=== PATIENT | female | born 1980 | race Two or more races ===

== ENCOUNTER 2021-09-10 18:16 | Emergency (ER) | payer OTHER ==
--- NOTE | 2021-09-10 18:41 | NUR ---
not in lobby
--- NOTE | 2021-09-10 19:15 | NUR ---
not in lobby
[2021-09-10] MEDS ORDERED: IBUP-1986 PO (22:48)
[2021-09-10] MEDS ORDERED: CYCL-1 PO (22:48)
== END 2021-09-10 19:16 | disposition left against medical advice (07) ==
LOC: ER 18:18
DX: M54.9 Dorsalgia, unspecified (principal); Z53.21 Procedure and treatment not carried out due to patient leaving prior to being seen by health care provider

== ENCOUNTER 2021-09-10 20:10 | Emergency (ER) | payer OTHER ==
[~2021-09-10] VITALS: Ht 160 cm; Wt 115.9 kg
[2021-09-10] MEDS ORDERED: ketorolac trometh. 30mg/ml inj. IM ONE (22:20)
[2021-09-10] MEDS ORDERED: cyclobenzaprine 10mg tablet PO ONE (22:20)
[2021-09-10] MEDS ORDERED: CYCL-1 PO (22:48)
[2021-09-10] MEDS ORDERED: IBUP-1986 PO (22:48)
[2021-09-10 23:02] VITALS: BP 138/78
== END 2021-09-10 23:47 | disposition home or self-care (01) ==
LOC: ER 23:45
DX: S39.012A Strain of muscle, fascia and tendon of lower back, initial encounter (principal); M54.42 Lumbago with sciatica, left side; R20.2 Paresthesia of skin; X58.XXXA Exposure to other specified factors, initial encounter; Y93.89 Activity, other specified; Y92.89 Other specified places as the place of occurrence of the external cause; Y99.8 Other external cause status
CPT/HCPCS: 96372; 99283; J1885

== ENCOUNTER 2021-10-04 17:02 | Emergency (ER) | payer OTHER ==
[~2021-10-04] VITALS: Ht 160 cm; Wt 121.8 kg
[~2021-10-04 17:02] MED LIST: CYCL-1 PO; IBUP-1986 PO
[2021-10-04 17:32] VITALS: BP 148/85
[2021-10-04] MEDS ORDERED: MELO-102 PO (20:29)
[2021-10-04] MEDS ORDERED: ketorolac trometh inj. 60 MG/2 ML VIAL IM ONE (20:30)
== END 2021-10-04 21:00 | disposition home or self-care (01) ==
LOC: ER 17:03
DX: S39.012A Strain of muscle, fascia and tendon of lower back, initial encounter (principal); G89.29 Other chronic pain; M54.42 Lumbago with sciatica, left side; Z79.899 Other long term (current) drug therapy; X58.XXXA Exposure to other specified factors, initial encounter; Y93.89 Activity, other specified; Y92.89 Other specified places as the place of occurrence of the external cause; Y99.8 Other external cause status
CPT/HCPCS: 96372; 99283; J1885